=== PATIENT | male | born 1945 | race Caucasian/White ===

== ENCOUNTER → 2025-04-04 07:00 | Outpatient (CLI) | payer OTHER, SELFPAY ==
--- NOTE | 2025-04-04 07:03 | DI.US.S_ITS ---
PROCEDURE: US SOFT TISSUE ABDOMEN INDICATIONS: LEFT UPPER QUADRANT ANTERIOR FULLNESS/SKIN DISCOLORATION TECHNIQUE: Real-time focused scanning was performed of the abdomen, with image documentation. COMPARISON: None. FINDINGS: No mass, fluid collection or lymphadenopathy seen in the region of interest. The spleen is mildly enlarged at 13.1 cm. IMPRESSION: No mass, fluid collection or lymphadenopathy seen within the soft tissues in the region of interest. Mild sonographic splenomegaly. Dictated by: Bruno Calderon [facility] Interpreted: Charbel Jennings MD on 04/04/2025 at 13:08 Transcribed by: ALMITA on 04/04/2025 at 13:11 Approved by: Charbel Jennings M.D. on 04/04/2025 at 17:18
== END ==
LOC: US 07:02
PROVIDERS: PCP Family Medicine; Referring Provider Internal Medicine; Visit Provider Internal Medicine
DX: C50.422 Malignant neoplasm of upper-outer quadrant of left male breast (principal); R16.1 Splenomegaly, not elsewhere classified; M79.9 Soft tissue disorder, unspecified; Z17.0 Estrogen receptor positive status [ER+]
CPT/HCPCS: 76705